=== PATIENT | male | born 1940 | race Caucasian/White ===

== ENCOUNTER 2018-07-25 08:13 | Day surgery (SDC) | payer MEDICARE, SELFPAY ==
[2018-07-25 08:53] VITALS: BMI 23.1
[2018-07-25 09:06] VITALS: BP 127/77; PULSE 61; RESP 16; TEMP 36.2; O2SAT 97
[2018-07-25] MEDS: SODIUM CHLORIDE 0.9% 1,000 ML 84 ML IV (09:08)
--- NOTE | 2018-07-25 10:16 | PM.HP.1 ---
History of Present Illness Date Patient Seen: 07/25/18 Time Patient Seen: 10:16 Chief complaint: [id number] SCREENING COLONOSCOPY Narrative: Very pleasant 77-year-old gentleman here for colonoscopy. 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 His last colonoscopy was in at the end of the year in 2014. He denies any new problems or symptoms related to the function of his GI tract. He reports that he continues to have loose stools but he has only about 1 bowel movement today but notes that is looser than it was before he had surgery. This has not changed since his operation. Patient History Social History household members: spouse Family & Social History Social History: household members spouse Meds Home Medications Medication Instructions Recorded Confirmed Type multivitamin 1 tab PO BID 07/25/18 07/25/18 History Allergies Allergy/AdvReac Type Severity Reaction Status Date / Time No Known Drug Allergies Allergy Verified 07/25/18 08:52 Review of Systems Review of Systems All systems reviewed & are unremarkable except as noted in HPI and below Exam Vital Signs (past 8 hours): - 07/25/18 09:06 Temperature 97.1 F L Pulse Rate 61 Respiratory Rate 16 Blood Pressure 127/77 Pulse Oximetry 97 Oxygen Delivery Method Room Air Narrative Exam Narrative: Very pleasant gentleman who appears younger than his stated age. HEENT: Normocephalic and atraumatic, pupils equal round reactive to light accommodation with anicteric sclera Lungs: Clear bilaterally Heart: Regular rate and rhythm Abdomen: Soft, nontender, active bowel sounds Extremities: Warm well perfused Assessment & Plan Plan: Assessment/Plan Narrative: Pleasant gentleman with a personal history of colon cancer here for a surveillance colonoscopy. We discussed the risks and benefits of the procedure the patient expressed a desire to complete it today.
--- NOTE | 2018-07-25 10:18 | SUR.OPER ---
GLASSES TO PACU WITH PATIENT
[2018-07-25] MEDS: fentaNYL 250 MCG/5 ML INJ IV (10:28)
[2018-07-25] MEDS: MIDAZOLAM 5 MG/5 ML VIAL IV (10:28)
--- NOTE | 2018-07-25 10:37 | PM.OP.1 ---
Operative Date/Time/Diagnoses Date of procedure: 07/25/18 Time of procedure: 10:38 Pre-op diagnosis: Personal history of colon cancer approximately 5 years ago Post-op diagnosis: same Procedure & Clinicians Procedure: Colonoscopy to the anastomosis at the hepatic flexure Same procedure as scheduled: Yes Indications: Last colonoscopy 3 years ago Surgeon: Jessica Mariano Click Yes if Unassisted: Yes Anesthesia Type: Sedation (Versed 2 mg; fentanyl 50 mcg) Operative Notes Findings: 1. Excellent prep 2. Anastomosis identified at the region of the hepatic flexure. It is in good repair and without evidence of neoplasia 3. Very minimal diverticulosis limited the sigmoid region 4. Mildly tortuous colon with some looping at the region of the splenic flexure 5. Grade 1 internal hemorrhoids Closure Type: not applicable Specimen(s): none sent Procedure in detail: After obtaining informed consent, the patient was brought to the GI suite and placed in the left lateral decubitus position on the examination table. After placement of appropriate monitors, the patient was given incremental doses of Versed and Fentanyl until an appropriate level of sedation was achieved. A time out was held per SCOAP protocol. A digital rectal examination was performed and did not reveal any masses or obstructing lesions. The colonoscope was gently passed into the patient's anus and the entire colon navigated to the level of the ileocolic anastomosis with mild difficulty due to looping of the colonoscope in the splenic flexure region. Once we had reached the anastomosis, the scope was withdrawn being sure to go before and beyond all mucosal folds and prominences and get an excellent examination. The findings are noted above. At the level of the rectal vault, the scope was retroflexed and the internal anal canal was examined. The scope was straightened and air aspirated from the colon. The instrument was removed from the patient's body and the procedure was concluded. The patient was allowed to awaken from sedation without difficulty and taken to the post-anesthesia care unit in good condition. Total sedation time was 20 min Total withdrawal time was 7 min 4 sec Complications: none Condition: stable Disposition: PACU Plan for aftercare: 1. Discharge to home 2. Plan for next colonoscopy in 5 years or as clinically indicated
[2018-07-25 10:45] VITALS: BP 114/74; PULSE 72; RESP 12; TEMP 36.2; O2SAT 96
--- NOTE | 2018-07-25 11:05 | SUR.PHASEII ---
Pt arrived from Endo room, fully awake, VS stable.
== END 2018-07-25 10:59 | disposition home or self-care (01) ==
PROVIDERS: Family Provider Internal Medicine; PCP Internal Medicine; Visit Provider Surgery
PROC: 0DJD8ZZ Inspection of Lower Intestinal Tract, Via Natural or Artificial Opening Endoscopic (ICD-10-PCS; CPT 45378; principal; 2018-07-25 09:45)
DX: Z85.038 Personal history of other malignant neoplasm of large intestine (principal); K64.0 First degree hemorrhoids; K57.30 Diverticulosis of large intestine without perforation or abscess without bleeding
CPT/HCPCS: G0105; 99152; J2250; J3010

== ENCOUNTER → 2020-03-26 14:08 | Outpatient (CLI) | payer MEDICARE, SELFPAY ==
--- NOTE | 2020-03-26 | DI.RAD.S_ITS ---
PROCEDURE: XR LUMBAR SPINE 2-3V INDICATIONS: Dorsalgia, unspecified TECHNIQUE: 3 views of the lumbar spine were acquired. COMPARISON: None. FINDINGS: Bones: L1 compression fracture with moderate height loss. Remaining visualized vertebral body heights grossly preserved. Multilevel degenerative endplate sclerosis and spurring. Diffuse facet arthropathy. Slight lateral curvature of the spine. Soft tissues: Scattered vascular calcifications in the aorta. IMPRESSION: L1 compression fracture, which could be acute. Please correlate clinically to point tenderness Dictated by: Kevin Valentine M.D. on 03/26/2020 at 15:47 Approved by: Kevin Valentine M.D. on 03/26/2020 at 15:49
--- NOTE | 2020-03-26 | DI.RAD.S_ITS ---
PROCEDURE: XR THORACIC SPINE 3V INDICATIONS: Dorsalgia, TECHNIQUE: 3 views of the thoracic spine were acquired. COMPARISON: [facility], CT, CHEST/ABD/PEL WITH CONTRAST, 04/26/2016, 9:19. FINDINGS: Bones: L1 compression fracture with moderate anterior height loss. Multilevel degenerative endplate sclerosis and spurring. Diffuse facet arthropathy. Soft tissues: No paravertebral stripe thickening. IMPRESSION: L1 compression fracture with moderate height loss. This is new since 04/26/16 however no more recent comparison studies. Please correlate with point tenderness. Dictated by: Kevin Valentine M.D. on 03/26/2020 at 15:45 Approved by: Kevin Valentine M.D. on 03/26/2020 at 15:47
== END ==
PROVIDERS: Family Provider Internal Medicine; PCP Internal Medicine; Referring Provider Student in an Organized Health Care Education/Training Program; Visit Provider Student in an Organized Health Care Education/Training Program
DX: M54.9 Dorsalgia, unspecified (principal); M48.56XA Collapsed vertebra, not elsewhere classified, lumbar region, initial encounter for fracture; M47.814 Spondylosis without myelopathy or radiculopathy, thoracic region; M47.816 Spondylosis without myelopathy or radiculopathy, lumbar region; I70.0 Atherosclerosis of aorta
CPT/HCPCS: 72072; 72100

== ENCOUNTER 2020-08-27 14:04 | Observation (INO) | payer MEDICARE, SELFPAY ==
[2020-08-27] VITALS (8 sets, daily range): BP systolic 136–152; BP diastolic 72–82; PULSE 60–66; RESP 16–31; TEMP 36.6–36.7; O2SAT 97–100; BMI 23.5
--- NOTE | 2020-08-27 14:15 | DI.CT.S_ITS ---
PROCEDURE: CT HEAD/BRAIN WO CON INDICATIONS: Righ visual vield loss, now resolved. TECHNIQUE: Noncontrast 4.5 mm thick angled axial sections acquired from the foramen magnum to the vertex, with coronal and sagittal reformats. For radiation dose reduction, the following was used: automated exposure control, adjustment of mA and/or kV according to patient size. COMPARISON: None. FINDINGS: Image quality: Excellent. CSF spaces: Basal cisterns are patent. No extra-axial fluid collections. The ventricles are symmetric in size and shape. Brain: No intracranial bleeds or masses. There is cerebral volume loss for age, with resultant ventricular and sulcal prominence. There are periventricular and deep white matter chronic small vessel ischemic changes. There is intracranial internal carotid artery atherosclerosis. Skull and face: Calvarium and visualized facial bones appear intact, without suspicious lesions. Sinuses: Visualized sinuses and mastoids are clear. IMPRESSION: 1. No CT evidence of acute intracranial pathology. 2. age-appropriate atrophy and mild white matter chronic small vessel ischemic changes. Dictated by: Estevan Davis M.D. on 08/27/2020 at 14:35 Approved by: Estevan Davis M.D. on 08/27/2020 at 14:36
--- NOTE | 2020-08-27 14:49 | PC.NURSE ---
5 episodes of right sided vision loss (different lewis of right vision) since 6 am. 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 Dr. Jolly's office said no vision issues/ please do stroke work up with CRP and Sed rate to explore temperal arteritis. This is report from office that sent her
--- NOTE | 2020-08-27 14:53 | ED.GENADULT ---
HPI - General Adult General Chief complaint: Eye Problems Stated complaint: episodes of vision loss since 6am Time Seen by Provider: 08/27/20 14:21 Source: patient and family Mode of arrival: Ambulatory Limitations: no limitations History of Present Illness HPI narrative: Patient is an 79-year-old male who is sent over from the ophthalmology clinic for evaluation of potential stroke. Patient is a very healthy 79-year-old male. He states that he has had 5 distinct episodes today where he has had vision changes in his right eye. He states that these episodes have varied as to how much of the visual field in his right eye is affected. Also varying how long the symptoms have lasted and also what type of symptoms that he is having. He was able to be seen by Ophthalmology today and had a dilated eye exam which the patient stated that he was told was unremarkable. He was sent to the emergency department for evaluation of potential temporal arteritis and also CVA. At the time here in the ER he denies any symptoms. Related Data Home Medications Medication Instructions Recorded Confirmed multivitamin 1 tab PO BID 07/25/18 07/25/18 Allergies Allergy/AdvReac Type Severity Reaction Status Date / Time No Known Drug Allergies Allergy Verified 07/25/18 08:52 Review of Systems Constitutional Constitutional: Denies chills, Denies fever(s), Denies headache(s) and Denies malaise Eyes Eyes: Reports change in vision ENT Ears, Nose, Mouth, and Throat: Denies vertigo, Denies dizziness, Denies headache(s), Denies sinus pain, Denies sinus pressure and Denies sore throat Cardiovascular Cardiovascular: Denies chest pain, Denies rapid heart rate, Denies lightheadedness and Denies dyspnea Respiratory Respiratory: Denies cough and Denies dyspnea Gastrointestinal Gastrointestinal: Denies abdominal pain, Denies nausea and Denies vomiting Genitourinary Genitourinary: Denies dysuria Genitourinary: Denies dysuria Musculoskeletal Musculoskeletal: Denies arthralgias, Denies myalgias, Denies numbness and Denies tingling Integumentary/Breasts Skin/Breast: Denies lesions and Denies rash Neurologic Neurologic: Denies abnormal speech, Denies confusion, Denies vertigo, Denies dizziness, Denies headache(s), Denies numbness and Denies tingling Psychiatric Psychiatric: Denies confusion Hematologic/Lymphatic Hematologic/Lymphatic: Denies easy bleeding and Denies easy bruising On Anticoagulants: No Allergic/Immunologic Allergic/Immunologic: Denies urticaria Patient History Medical History Healthy adult Social History household members: spouse Exam Initial Vital Signs Initial Vital Signs: Vital Signs Temperature 97.9 F 08/27/20 14:16 Pulse Rate 66 08/27/20 14:16 Respiratory Rate 16 08/27/20 14:16 Blood Pressure 152/72 H 08/27/20 14:16 Pulse Oximetry 98 08/27/20 14:16 Const General: cooperative, comfortable, well developed and well groomed Limitations: mental status not altered HENSD Head: normal to inspection, normocephalic and atraumatic Eyes General: appearance normal, both eyes and all related structures Pupils: other (Dilated pupils bilaterally) EOM: EOM intact bilaterally Chest Chest: No crepitus and No tenderness Resp Effort & Inspection: normal respiratory effort Auscultation: clear to auscultation bilaterally Cardio Rate: regular rate Rhythm: regular rhythm GI Inspection: non-distended Palpation: soft, No firm and No tender Skin Lesions: no lesions Rashes: no rashes Neuro General: patient alert, patient awake and patient oriented x3 Cognition: normal cognition Gait: normal gait Motor: muscle tone normal throughout Sensory Exam: no sensory deficits noted Extrem General: normal to inspection and capillary refill normal Psych Appearance: grossly normal and well kempt Scores GCS Karthik coma scale eye opening: Spontaneous Karthik coma scale verbal response: Orientated Karthik coma scale motor response: Obey commands Karthik coma scale total score: 15 NIH Stroke Scale Level of Conciousness: Alert, keenly responsive Ask month/age: Answers both questions correctly. Open/close eyes, close hand: Performs both tasks correctly Best gaze horizontal: Normal Visual lewis: No visual loss Facial palsy: Normal symetrical movement Left arm drift: No drift for full 10 sec Right arm drift: No drift for full 10 sec Left leg drift: No drift for full 5 sec Right leg drift: No drift for full 5 sec Limb ataxia: Absent Sensory on face/arms/legs: Normal, no sensory loss Best language: No aphasia, normal Dysarthria: Normal Extinction or inattention: No abnormality Total NIH Stroke scale score: 0 Course Orders Ordered: ED Orders 08/27/20 14:15 CT head/brain wo con Stat Urinalysis and Microscopic Stat 08/27/20 14:16 Urine Drug Screen, Rapid Stat EKG-12 Lead Stat 08/27/20 14:38 CRP [C-Reactive Protein Quant] Stat Complete Blood Count AUTO DIFF Stat Comprehensive Metabolic Panel Stat Erythrocyte Sedimentation Rate Stat Partial Thromboplastin Time Stat Prothrombin Time INR Stat Troponin & CK Cardiac Panel Stat 08/27/20 14:53 MR stroke Stat 08/27/20 16:47 Trop I [Troponin I] Stat 08/27/20 18:25 COVID19 Stat Discontinued Medications Aspirin (Aspirin 81 Mg Chew Tab) 324 mg PO NOW ONE Stop: 08/27/20 15:49 Last Admin: 08/27/20 16:10 Dose: 324 mg Documented by: XIMENA Vital Signs Vital signs: Vital Signs - 8 hr 08/27/20 14:16 08/27/20 16:08 08/27/20 16:30 Temperature 97.9 F Pulse Rate 66 65 64 Respiratory Rate 16 31 H 18 Blood Pressure 152/72 H 143/77 H 141/81 H Pulse Oximetry 98 98 98 08/27/20 17:00 08/27/20 17:30 08/27/20 18:00 Temperature Pulse Rate 60 62 61 Respiratory Rate 17 17 22 Blood Pressure 136/77 144/75 H Pulse Oximetry 98 99 97 08/27/20 18:19 Temperature Pulse Rate 61 Respiratory Rate 19 Blood Pressure 144/75 H Pulse Oximetry 98 Medical Decision Making Lab Data Lab results reviewed: Yes I reviewed the patient's lab results. Result diagrams: 08/27/20 14:38 08/27/20 14:38 Labs: Lab Results 08/27/20 08/27/20 08/27/20 Range/Units 14:38 14:38 14:38 WBC 4.4 L (4.5-11.0) X10^3/uL RBC 3.53 L (4.5-5.9) X10^6/uL Hgb 11.4 L (13.5-17.5) g/dL Hct 34.1 L (41-53) % MCV 96.7 (80-100) fL MCH 32.3 (26-34) PG MCHC 33.5 (30-36) % RDW 13.8 (11.6-14.8) % Plt Count 225 (150-400) X10^3/uL Neut % (Auto) 52.1 (50-75) % Lymph % (Auto) 26.9 (25-40) % [place] % (Auto) 16.4 H (3-14) % Eos % (Auto) 3.8 (2-4) % Baso % (Auto) 0.8 (0-2) % Neut # (Auto) 2300 (2159-1877) /uL Lymph # (Auto) 1200 (2351-7947) /uL [place] # (Auto) 700 (0-900) /uL Eos # (Auto) 200 (0-450) /uL Baso # (Auto) 0 (0-100) /uL ESR (0-15) MM/HR PT 11.9 (10.1-12.7) SECONDS INR 1.0 (0.9-1.3) APTT 32 (26.4-36.2) SECONDS Sodium 139 (137-145) mmol/L Potassium 4.3 (3.4-5.1) mmol/L Chloride 105 (98-107) mmol/L Carbon Dioxide 27 (22-32) mmol/L BUN 22 H (9-20) mg/dL Creatinine 0.94 (0.66-1.25) mg/dL Estimated GFR > 60.0 (>60) mL/min BUN/Creatinine Ratio 23.4 H (6-22) Glucose 87 (80-110) mg/dL Calcium 9.0 (8.4-10.2) mg/dL Total Bilirubin 0.2 (0.2-1.3) mg/dL AST 37 (17-59) IU/L ALT 18 (<50) IU/L Alkaline Phosphatase 59 (38-126) U/L Total Creatine Kinase 99 (55-170) U/L CK-MB (CK-2) TNP CK-MB (CK-2) Rel Index TNP Troponin I 0.168 H* (0.01-0.034) ng/mL C-Reactive Protein (<1.0) mg/dL Total Protein 7.8 (6.3-8.2) g/dL Albumin 4.4 (3.5-5.0) g/dL Globulin 3.4 (1.7-4.1) g/dL Albumin/Globulin Ratio 1.3 (1.0-2.8) 08/27/20 08/27/20 08/27/20 Range/Units 14:38 14:38 16:47 WBC (4.5-11.0) X10^3/uL RBC (4.5-5.9) X10^6/uL Hgb (13.5-17.5) g/dL Hct (41-53) % MCV (80-100) fL MCH (26-34) PG MCHC (30-36) % RDW (11.6-14.8) % Plt Count (150-400) X10^3/uL Neut % (Auto) (50-75) % Lymph % (Auto) (25-40) % [place] % (Auto) (3-14) % Eos % (Auto) (2-4) % Baso % (Auto) (0-2) % Neut # (Auto) (2953-9225) /uL Lymph # (Auto) (5997-2276) /uL [place] # (Auto) (0-900) /uL Eos # (Auto) (0-450) /uL Baso # (Auto) (0-100) /uL ESR 43 H (0-15) MM/HR PT (10.1-12.7) SECONDS INR (0.9-1.3) APTT (26.4-36.2) SECONDS Sodium (137-145) mmol/L Potassium (3.4-5.1) mmol/L Chloride (98-107) mmol/L Carbon Dioxide (22-32) mmol/L BUN (9-20) mg/dL Creatinine (0.66-1.25) mg/dL Estimated GFR (>60) mL/min BUN/Creatinine Ratio (6-22) Glucose (80-110) mg/dL Calcium (8.4-10.2) mg/dL Total Bilirubin (0.2-1.3) mg/dL AST (17-59) IU/L ALT (<50) IU/L Alkaline Phosphatase (38-126) U/L Total Creatine Kinase (55-170) U/L CK-MB (CK-2) CK-MB (CK-2) Rel Index Troponin I 0.166 H* (0.01-0.034) ng/mL C-Reactive Protein 0.8 (<1.0) mg/dL Total Protein (6.3-8.2) g/dL Albumin (3.5-5.0) g/dL Globulin (1.7-4.1) g/dL Albumin/Globulin Ratio (1.0-2.8) Imaging Data CT scan - head: Radiologist's Impression: [address] [id number] Scan ReportSigned Patient: Jacob Currie CMR#: [id number]: 1940Acct:[id number]/Sex: 79 / MDate of Service: 08/27/20Loc: EDAccession Number: [id number] Procedure: CT head/brain wo con Ordering Provider: Paul Winn D.O. PROCEDURE: CT HEAD/BRAIN WO CON INDICATIONS: Righ visual vield loss, now resolved. TECHNIQUE: Noncontrast 4.5 mm thick angled axial sections acquired from the foramen magnum to the vertex, with coronal and sagittal reformats. For radiation dose reduction, the following was used: automated exposure control, adjustment of mA and/or kV according to patient size. COMPARISON: None. FINDINGS: Image quality: Excellent. CSF spaces: Basal cisterns are patent. No extra-axial fluid collections. The ventricles are symmetric in size and shape. Brain: No intracranial bleeds or masses. There is cerebral volume loss for age, with resultant ventricular and sulcal prominence. There are periventricular and deep white matter chronic small vessel ischemic changes. There is intracranial internal carotid artery atherosclerosis. Skull and face: Calvarium and visualized facial bones appear intact, without suspicious lesions. Sinuses: Visualized sinuses and mastoids are clear. IMPRESSION: 1. No CT evidence of acute intracranial pathology. 2. age-appropriate atrophy and mild white matter chronic small vessel ischemic changes. Dictated by: Estevan Davis M.D. on 08/27/2020 at 14:35 Approved by: Estevan Davis M.D. on 08/27/2020 at 14:36 stroke MRI: Radiologist's Impression: [address] [address]A[place]dt Resonance ReportSigned Patient: Jacob Currie CMR#: [id number]: 1940Acct:[id number]/Sex: 79 / MDate of Service: 08/27/20Loc: EDAccession Number: [id number] Procedure: MR stroke Ordering Provider: Paul Winn D.O. PROCEDURE: MR STROKE Pre- and post-contrast brain MRI, non-contrast brain MR angiogram, pre- and postcontrast neck MR angiogram INDICATIONS: right sided vision loss TECHNIQUE: Brain: Noncontrast axial T1 spin echo, axial T2 fast spin echo, sagittal and axial FLAIR, coronal T2 fast spin echo, axial gradient echo, axial diffusion and ADC through the brain. After the administration of contrast, axial 3D VIBE of the cranial vasculature and brain. Brain MRA: Non-contrast 3-D time of flight MR angiogram, with multiple aptfxyx-rhvhuxdgs-mgxpqyqwze (MIP) reformats performed. Neck MRA: Axial and sagittal TruFISP through the neck. Coronal dynamic MR angiogram during administration of contrast in the arterial and venous phases, with 3-dimenstional hlfobva-ozolgbqoi-ubittzdaik (MIP) reformats constructed from subtraction images. COMPARISON: Merged With [facility], CT, CT HEAD/BRAIN WO CON, 08/27/2020, 14:21. FINDINGS: Image quality: Excellent. BRAIN: CSF spaces: Ventricles are normal in size and shape. Basal cisterns are patent. No extra-axial fluid collections. Brain: No intracranial bleeds or mass effects. Mild cerebral volume loss Eric-white matter interface is normal. Diffusion weighted images show no acute ischemic insults. Brainstem appears normal. Normal intravascular flow voids are present. No abnormal intracranial enhancement. Skull and face: Calvarial marrow signal is normal. Orbits appear normal. Sinuses: Sinuses and mastoids are clear. BRAIN MR ANGIOGRAM: Anterior circulation: Intracranial internal carotid arteries are normal in size and enhancement. The flow within the paired anterior cerebral arteries is normal and symmetric. The flow within the middle cerebral arteries is normal and symmetric. The anterior communicating artery is seen. No stenoses, occlusions, or aneurysms. Posterior circulation: The visualized portions of the vertebral arteries demonstrate normal caliber, and join to form a normal appearing basilar artery. There is origin of the right posterior cerebral artery. The flow within the posterior cerebral arteries is normal and symmetric. No stenoses, occlusions, or aneurysms. NECK MR ANGIOGRAM: Carotids: Great vessels demonstrate a conventional anatomy as they arise from the aortic arch. The origins of the common carotid arteries appear patent. The calibers and courses of both common carotid arteries are normal. The bifurcation regions appear normal bilaterally. The internal carotid arteries demonstrate normal course and caliber. Posterior circulation: The origins of the vertebral arteries appear patent. More superior portions of both vertebral arteries demonstrate normal course and caliber, and join to form a normal appearing basilar artery. Miscellaneous: Subclavian arteries appear patent. Pre-contrast images through the neck show no soft tissue abnormalities. IMPRESSION: BRAIN MRI: 1. No acute intracranial abnormalities. 2. Mild cerebral volume loss. BRAIN MR ANGIOGRAM: 1. No hemodynamic significant stenosis in anterior or posterior circulations. 2. origin of the right posterior cerebral artery (a normal variant). NECK MR ANGIOGRAM: No hemodynamic significant stenosis in cervical carotid arteries or vertebral arteries bilaterally. Dictated by: Tim Jack M.D. on 08/27/2020 at 16:19 Approved by: Tim Jack M.D. on 08/27/2020 at 16:39 ECG Data Attestation: I personally reviewed and interpreted this ECG as follows: Prior ECG tracings: not available for review Interpretation: Sinus rhythm Ventricular rate is 61 Left bundle-branch block MDM Narrative Medical decision making narrative: Other than his dilated eyes which were done at the ophthalmology clinic today patient has a normal exam here in the emergency department. He has no tenderness over his temporal arteries. He is asymptomatic and has no visual changes since arrival here in the ER. His head CT is unremarkable, is stroke MRI is negative. His labs are unremarkable except for an elevated troponin. His renal function is normal. He has a left bundle branch block on his EKG. I have no prior EKGs to compare this to. No prior troponins to compare this to. I did discuss the case with Dr. Cortés who is on-call for cardiology who recommended admission, trending of troponin and an echocardiogram. If his troponin elevated that he needs transferred. If his echocardiogram is abnormal that he would need transferred. Both of these are normal then he would need a stress test. Discussed the case with Dr. Mccabe who is on-call for Internal Medicine who will admit for further evaluation treatment. Patient was given an aspirin but we did not start any heparin. Discussed the admission with the patient his for bedside. They both expressed understanding agreement. Discharge Plan Departure Patient Disposition: Admitted as Observation Clinical Impression: Visual disturbance, Complete left bundle branch block, Elevated troponin Admit Date/Time: 08/27/20 19:12 Admit Provider: John Mccabe
[2020-08-27 14:56] LABS: Add Manual Diff / Slide Review NO; Basophils Absolute Auto 0 /uL (0-100); Basophils Percent Auto 0.8 % (0-2); Eosinophils Absolute Auto 200 /uL (0-450); Eosinophils Percent Auto 3.8 % (2-4); Hematocrit 34.1 % (41-53); Hemoglobin 11.4 g/dL (13.5-17.5); Lymphocytes Absolute Auto 1200 /uL (1100-4500); Lymphocytes Percent Auto 26.9 % (25-40); Mean Corpuscular HGB Conc 33.5 % (30-36); Mean Corpuscular Hemoglobin 32.3 PG (26-34); Mean Corpuscular Volume 96.7 fL (80-100); Monocytes Absolute Auto 700 /uL (0-900); Monocytes Percent Auto 16.4 % (3-14); Neutrophils Absolute Auto 2300 /uL (1500-7000); Neutrophils Percent Auto 52.1 % (50-75); Platelet Count 225 X10^3/uL (150-400); Red Blood Cell Count 3.53 X10^6/uL (4.5-5.9); Red Cell Distribution Width 13.8 % (11.6-14.8); White Blood Cell Count 4.4 X10^3/uL (4.5-11.0)
[2020-08-27 15:03] LABS: Prothrombin Time 11.9 SECONDS (10.1-12.7)
[2020-08-27 15:05] LABS: PTT Partial Thromboplastin Tim 32 SECONDS (26.4-36.2)
[2020-08-27 15:07] LABS: Alanine Aminotransferase 18 IU/L (<50); Albumin 4.4 g/dL (3.5-5.0); Albumin Globulin Ratio 1.3 (1.0-2.8); Alkaline Phosphatase 59 U/L (38-126); Aspartate Aminotransferase 37 IU/L (17-59); BUN Creatinine Ratio 23.4 (6-22); Bilirubin Total 0.2 mg/dL (0.2-1.3); Blood Urea Nitrogen 22 mg/dL (9-20); Carbon Dioxide 27 mmol/L (22-32); Chloride 105 mmol/L (98-107); Creatine Kinase 99 U/L (55-170); Estimated Glomerular Filt Rate > 60.0 mL/min (>60); Globulin 3.4 g/dL (1.7-4.1); Glucose 87 mg/dL (80-110); HEMOLYSIS 45 (0-50); Potassium 4.3 mmol/L (3.4-5.1); Sodium 139 mmol/L (137-145); Total Protein 7.8 g/dL (6.3-8.2)
[2020-08-27 15:14] LABS: C-Reactive Protein Quant 0.8 mg/dL (<1.0)
[2020-08-27 15:40] LABS: Erythrocyte Sedimentation Rate 43 MM/HR (0-15)
[2020-08-27 15:42] LABS: Troponin I 0.168 ng/mL (0.01-0.034)
[2020-08-27] MEDS: ASPIRIN 81 MG CHEW TAB 324 MG PO (16:10)
[2020-08-27 17:21] LABS: Troponin I 0.166 ng/mL (0.01-0.034)
--- NOTE | 2020-08-27 19:17 | DI.ECHO.S_ITS ---
[facility]---------[facility] +---------+ : : [id number] . : : : : [place] : : : : [id number] : : : : Phone: [phone]+ Echocardiogram Report + + :Name: JULIA IYER Study Date: 08/28/2020 Height: 65 in : :[facility] ReadingLocation: Weight: 188 lb : : Gender: Male BSA: 1.9 m2 : :: 1940 Age: 79 yrs BP: 112/62 mmHg: :Ordering Physician: : :REESE MONCADA MACHINE [employer]-BC Performed By: Zulema Bautista : :Referring: REESE MONCADA : + + Interpretation Summary Left ventricular systolic function is normal with an estimated ejection fraction of 55 to 60% with a significant dyssynchronous contraction pattern due to a conduction abnormality. There are no focal wall motion abnormalities. Left ventricular size appears normal with borderline LVH. Chordal systolic anterior motion of the mitral valve apparatus is noted but there is no evidence for any outflow tract obstruction. There is a probable relaxation diastolic abnormality but normal filling pressures. The right ventricle appears normal in size and systolic function. Right ventricular systolic pressure cannot be estimated but CVP is likely around 3 mmHg. There is mild left atrial enlargement. There is significant mitral annular calcification but no significant functional valvular abnormality. There is moderate calcific aortic sclerosis but no significant stenosis. There is mild aortic regurgitation. The ascending aorta is mild??moderately enlarged. Procedure: A two-dimensional transthoracic echocardiogram with color flow and Doppler was performed. The study quality was technically adequate. There is no prior echocardiogram noted for this patient. The heart rate ranged between 64-88 bpm during the study. Left Ventricle: The left ventricle is normal in size. There is borderline concentric left ventricular hypertrophy. There is mild proximal septal thickening noted. Left ventricular systolic function appears normal without focal wall motion abnormalities. The ejection fraction is estimated to be 55- 60%. There is a marked dyssynchronous contraction pattern, consistent with a conduction abnormality. Diastolic parameters suggest a relaxation abnormality of the left ventricle, consistent with probable normal filling pressures. Right Ventricle: The right ventricle is normal in size and function. Atria: The left atrium is mildly dilated. Right atrial size is normal. There is no Doppler evidence for an interatrial shunt. Mitral Valve: There is moderate to severe mitral annular calcification. The mitral valve leaflets are mildly calcified. There is systolic anterior motion of the chordal apparatus. The mitral valve mean gradient is 3.5 mmHg. No significant mitral valve stenosis. There is trace mitral regurgitation. Aortic Valve: There is moderate aortic valve sclerosis. The aortic valve is moderately calcified. There is reduced mobility of the right coronary cusp. There is no hemodynamically significant valvular aortic stenosis. There is mild aortic regurgitation. Tricuspid Valve: The tricuspid valve is normal in structure and function. There is trace tricuspid regurgitation. Pulmonary artery pressures cannot be estimated because of the lack of a measurable TR jet velocity but the IVC suggests a CVP of around 3 mmHg. Pulmonic Valve: The pulmonic valve is not well visualized. There is no pulmonic valvular regurgitation. Great Vessels: The aortic root is normal size. The ascending aorta is mild- moderately enlarged. The IVC is of normal diameter and collapses greater than 50% with a sniff. This suggests a low right atrial pressure of 3 mm Hg. Pericardium/ Pleura There is no pericardial effusion. There is no pleural effusion. MMode/2D Measurements & Calculations LVIDd: 4.9 cm LVOT diam: 2.4 cm LVIDs: 3.6 cm Ao root diam: 3.8 cm FS: 26.3 % asc Aorta Diam: 4.1 cm EPSS: 0.87 cm Ao Arch Diam (Prox Trans): 2.5 cm IVSd: 1.1 cm LVPWd: 1.1 cm LV perdomo. diameter/BSA (cm/m^2): 2.5 LV sys. diameter/BSA (cm/m^2): 1.9 LA A2 area: 24.9 cm2 RA long axis: 5.6 cm LA A4 area: 18.8 cm2 RA area: 19.0 cm2 LA length (vol): 5.6 cm RA vol: 55.1 ml LA vol: 70.8 ml RA : 28.6 ml/m2 LA vol index: 36.7 ml/m2 IVC diam: 1.5 cm RVD1 (basal): 3.0 cm TAPSE: 2.5 cm Doppler Measurements & Calculations Ao V2 max: 175.5 cm/sec MV E max darin: 77.6 cm/sec Ao V2 mean: 121.0 cm/sec MV A max darin: 156.9 cm/sec Ao max P.3 mmHg MV E/A: 0.49 Ao mean P.7 mmHg Med Peak E' Darin: 5.7 cm/sec Ao V2 VTI: 36.3 cm E/E' med: 13.6 Lat Peak E' Darin: 7.8 cm/sec E/E' lat: 9.9 E/e' average: 11.8 MV dec time: 0.20 sec PA V2 max: 73.9 cm/sec MV V2 mean: 85.4 cm/sec PA V2 mean: 49.1 cm/sec MV mean P.5 mmHg PA mean P.1 mmHg MV V2 VTI: 27.6 cm PA pr(Accel): 34.5 mmHg Reading Physician:02:06 PM
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
[2020-08-27 19:20] LABS: COVID19 -Nasal RAPID Negative (Negative)
[2020-08-27] MEDS: LACTATED RINGERS 1,000 ML 60 ML IV (21:15)
[2020-08-27] MEDS: predniSONE 20 MG TABLET 60 MG PO (21:26)
[2020-08-27 21:38] LABS: C-Reactive Protein Quant 0.8 mg/dL (<1.0)
[2020-08-27 21:48] LABS: Erythrocyte Sedimentation Rate 43 MM/HR (0-15)
--- NOTE | 2020-08-27 22:15 | PC.NURSE ---
Addendum entered by Keshia Coombs R.N. 08/27/20 23:27: Pt provided with teaching materials as requested by JAROCHO Bird on Giant Cell Temporal Arteritis and prednisone. Pt reports injury to left fourth finger from gardening tool. JAROCHO Bird has pt remove bandaid and requests this editorial writer steristrip this wound. Pt has adherent gauze in place to finger. Removed gently after soaking with normal saline. Wound edges are well approximated with macerated skin to finger pad. Finger was dried with gauze after flushing with normal saline and thin steristrips applied. Left open to air. Pt quietly reading in bed. Instructed to request assistance when needing/desiring out of bed. Verbalizes understanding and agreement. Original Note: 1930 Pt to room 205 from [facility] awake, alert, appropriately conversant. Pt's spouse accompanies pt to room and is involved and participatory in pt's care. JAROCHO Bird in room nearly immediately to assess and examine. Performs NIH and pt scores zero. This editorial writer performed bedside swallow eval which pt passed without difficulty. Was provided with diet. BL calf scd's placed with rationale for use. JAROCHO Bird in to discuss with pt rationale for prednisone and pt agrees to take. Pt denies any visual disturbances or other neurological deficits. Denies pain. Educated on plan of care for the evening.
[2020-08-28] VITALS (9 sets, daily range): BP systolic 112–160; BP diastolic 62–85; PULSE 64–76; RESP 16; TEMP 35.9–36.3; O2SAT 96–98
[2020-08-28 00:11] LABS: UR Morphine/Opiate cutoff 300 Negative (Negative); Ur Creatinine Normal (Normal); Ur Specific Gravity Normal (Normal); Urine Amphetamines Negative (Negative); Urine Barbiturates Negative (Negative); Urine Benzodiazepines Negative (Negative); Urine Cocaine Negative (Negative); Urine MDMA Negative (Negative); Urine Methadone Negative (Negative); Urine Methamphetamines Negative (Negative); Urine Oxycodone Negative (Negative); Urine Phencyclidine Negative (Negative); Urine Tetrahydrocannabinol Negative (Negative); Urine Tricyclic Antidepressant Negative (Negative); Urine pH Normal (Normal)
[2020-08-28 00:24] LABS: RBC Urine None Seen (0-5/HPF)
[2020-08-28 00:31] LABS: Appearance Urine UA CLEAR; Bilirubin Urine UA NEGATIVE (NEGATIVE); Color Urine UA YELLOW; Glucose Urine UA NEGATIVE (Negative); Ketones Urine UA NEGATIVE (NEGATIVE); Leukocyte Esterase Urine UA TRACE (NEGATIVE); Nitrite Urine UA NEGATIVE (Negative); Occult Blood Urine UA NEGATIVE (Negative); Protein Urine UA NEGATIVE (Negative); Specific Gravity Urine UA 1.025 (1.000-1.035); Urobilinogen Urine UA 0.2 E.U./dL (0.2)
[2020-08-28 00:34] LABS: Bacteria Urine Few (2-10); Squamous Epithelial Cell Urine 0-1 /HPF (0-5/HPF); WBC Urine 5-10/HPF (0-5/HPF)
[2020-08-28 00:35] LABS: Culture Indicated Urine Specimen Cultured
[2020-08-28 06:36] LABS: Add Manual Diff / Slide Review NO; Basophils Absolute Auto 0 /uL (0-100); Basophils Percent Auto 0.2 % (0-2); Eosinophils Absolute Auto 0 /uL (0-450); Eosinophils Percent Auto 0.2 % (2-4); Hematocrit 33.2 % (41-53); Hemoglobin 11.2 g/dL (13.5-17.5); Lymphocytes Absolute Auto 500 /uL (1100-4500); Lymphocytes Percent Auto 13.6 % (25-40); Mean Corpuscular HGB Conc 33.8 % (30-36); Mean Corpuscular Hemoglobin 32.6 PG (26-34); Mean Corpuscular Volume 96.7 fL (80-100); Monocytes Absolute Auto 100 /uL (0-900); Monocytes Percent Auto 1.7 % (3-14); Neutrophils Absolute Auto 2900 /uL (1500-7000); Neutrophils Percent Auto 84.3 % (50-75); Platelet Count 217 X10^3/uL (150-400); Red Blood Cell Count 3.43 X10^6/uL (4.5-5.9); Red Cell Distribution Width 13.8 % (11.6-14.8); White Blood Cell Count 3.4 X10^3/uL (4.5-11.0)
[2020-08-28 06:46] LABS: BUN Creatinine Ratio 22.7 (6-22); Blood Urea Nitrogen 20 mg/dL (9-20); Calcium 9.3 mg/dL (8.4-10.2); Carbon Dioxide 27 mmol/L (22-32); Chloride 104 mmol/L (98-107); Cholesterol 206 mg/dL (140-199); Estimated Glomerular Filt Rate > 60.0 mL/min (>60); Glucose 167 mg/dL (80-110); HDL Cholesterol 51 mg/dL (40-60); HEMOLYSIS < 15 (0-50); LDL Cholesterol Calculated 144 mg/dL (<100); Potassium 4.4 mmol/L (3.4-5.1); Sodium 139 mmol/L (137-145); Triglycerides 55 mg/dL (35-150)
[2020-08-28 06:56] LABS: NT-proBNP (BNP-Adult 18+) 244 pg/mL (<450); Troponin I 0.096 ng/mL (0.01-0.034)
--- NOTE | 2020-08-28 07:38 | PC.NURSE ---
nurse called lab to report that UA has order to be cultured if indicated, lab has orders and will follow up. communication orders passed on at shift report.
[2020-08-28] MEDS: ENOXAPARIN 40 MG/0.4 ML SYRINGE SUBCUT (08:49)
[2020-08-28] MEDS: predniSONE 20 MG TABLET 60 MG PO (08:50)
[2020-08-28] MEDS: ASPIRIN EC 81 MG TABLET PO (08:50)
--- NOTE | 2020-08-28 10:23 | PM.CN ---
History of Present Illness Consult details Date Patient Seen: 08/28/20 Time Patient Seen: 10:28 Chief complaint: episodes of vision loss since 6am Reason for consult: change in vision Requesting provider: Kuldip Jose Narrative: two episodes of acute changes in vision yesterday. right eye only, no pain, no trauma, no prior episodes. first episode was global blurring that resolved. Second episode was left 1/2 of his right eye blurry. current vision is normal. Meds Home Medications and Allergies Home Medications Medication Instructions Recorded Confirmed Type multivitamin 1 tab PO BID 07/25/18 07/25/18 History Allergies Allergy/AdvReac Type Severity Reaction Status Date / Time No Known Drug Allergies Allergy Verified 07/25/18 08:52 Review of Systems Review of Systems ROS: Yes All systems reviewed with the patient and are negative except as otherwise documented Eyes Comments: transient blurring of the right eye only. Gastrointestinal Gastrointestinal: Reports change in bowel habits and Reports loose stools Musculoskeletal Comments: back stiffness Exam Vital Signs (past 8 hours): - 08/28/20 04:44 08/28/20 05:58 08/28/20 07:28 Temperature 97.3 F L 96.9 F L Pulse Rate 67 73 Respiratory Rate 16 16 Blood Pressure 112/62 160/85 H Pulse Oximetry 96 96 98 Oxygen Delivery Method Room Air Oxygen Flow Rate 0 Const General: cooperative and comfortable Nutritional Appearance: average body habitus and well nourished Orientation: alert and oriented x3 HENMT Head: normocephalic and atraumatic Nose: external nose normal Mouth: oral mucosae normal Eyes Conjunctivae: conjunctivae normal Neck Neck: normal visual inspection and trachea midline Chest Chest: normal inspection of the chest Resp Effort & Inspection: normal respiratory effort and able to speak in complete sentences GI Inspection: normal to inspection Skin General: turgor normal Lesions: no lesions Neuro General: patient alert, patient oriented x3 and no focal motor deficits Psych Appearance: well kempt Judgment: judgment good Objective Labs Result Diagrams: 08/28/20 06:17 08/28/20 06:17 Labs: Laboratory Results - last 24 hr 08/27/20 08/27/20 08/27/20 14:38 14:38 14:38 WBC 4.4 L RBC 3.53 L Hgb 11.4 L Hct 34.1 L MCV 96.7 MCH 32.3 MCHC 33.5 RDW 13.8 Plt Count 225 Neut % (Auto) 52.1 Lymph % (Auto) 26.9 [place] % (Auto) 16.4 H Eos % (Auto) 3.8 Baso % (Auto) 0.8 Neut # (Auto) 2300 Lymph # (Auto) 1200 [place] # (Auto) 700 Eos # (Auto) 200 Baso # (Auto) 0 ESR PT 11.9 INR 1.0 APTT 32 Sodium 139 Potassium 4.3 Chloride 105 Carbon Dioxide 27 BUN 22 H Creatinine 0.94 Estimated GFR > 60.0 BUN/Creatinine Ratio 23.4 H Glucose 87 Calcium 9.0 Magnesium Total Bilirubin 0.2 AST 37 ALT 18 Alkaline Phosphatase 59 Total Creatine Kinase 99 CK-MB (CK-2) TNP CK-MB (CK-2) Rel Index TNP Troponin I 0.168 H* C-Reactive Protein NT-Pro-B Natriuret Pep Total Protein 7.8 Albumin 4.4 Globulin 3.4 Albumin/Globulin Ratio 1.3 Triglycerides Cholesterol LDL Cholesterol, Calc HDL Cholesterol TSH Urine Color Urine Appearance Urine pH Ur Specific [place] Urine Protein Urine Glucose (UA) Urine Ketones Urine Occult Blood Urine Nitrate Urine Bilirubin Urine Urobilinogen Ur Leukocyte Esterase Urine RBC Urine WBC Ur Squamous Epith Cells Urine Bacteria Ur Culture Indicated? U Opiates 300ng/mL cut Ur Oxycodone Screen Urine Methadone Screen Ur Barbiturates Screen U Tricyclic Antidepress Ur Phencyclidine Scrn Ur Amphetamines Screen U Methamphetamines Scrn Ur MDMA Scrn (Ecstasy) U Benzodiazepines Scrn Urine Cocaine Screen U Marijuana (THC) Screen SARS-CoV-2 (PCR) 08/27/20 08/27/20 08/27/20 14:38 14:38 16:47 WBC RBC Hgb Hct MCV MCH MCHC RDW Plt Count Neut % (Auto) Lymph % (Auto) [place] % (Auto) Eos % (Auto) Baso % (Auto) Neut # (Auto) Lymph # (Auto) [place] # (Auto) Eos # (Auto) Baso # (Auto) ESR 43 H PT INR APTT Sodium Potassium Chloride Carbon Dioxide BUN Creatinine Estimated GFR BUN/Creatinine Ratio Glucose Calcium Magnesium Total Bilirubin AST ALT Alkaline Phosphatase Total Creatine Kinase CK-MB (CK-2) CK-MB (CK-2) Rel Index Troponin I 0.166 H* C-Reactive Protein 0.8 NT-Pro-B Natriuret Pep Total Protein Albumin Globulin Albumin/Globulin Ratio Triglycerides Cholesterol LDL Cholesterol, Calc HDL Cholesterol TSH Urine Color Urine Appearance Urine pH Ur Specific [place] Urine Protein Urine Glucose (UA) Urine Ketones Urine Occult Blood Urine Nitrate Urine Bilirubin Urine Urobilinogen Ur Leukocyte Esterase Urine RBC Urine WBC Ur Squamous Epith Cells Urine Bacteria Ur Culture Indicated? U Opiates 300ng/mL cut Ur Oxycodone Screen Urine Methadone Screen Ur Barbiturates Screen U Tricyclic Antidepress Ur Phencyclidine Scrn Ur Amphetamines Screen U Methamphetamines Scrn Ur MDMA Scrn (Ecstasy) U Benzodiazepines Scrn Urine Cocaine Screen U Marijuana (THC) Screen SARS-CoV-2 (PCR) 08/27/20 08/27/20 08/27/20 18:25 21:01 21:01 WBC RBC Hgb Hct MCV MCH MCHC RDW Plt Count Neut % (Auto) Lymph % (Auto) [place] % (Auto) Eos % (Auto) Baso % (Auto) Neut # (Auto) Lymph # (Auto) [place] # (Auto) Eos # (Auto) Baso # (Auto) ESR 43 H PT INR APTT Sodium Potassium Chloride Carbon Dioxide BUN Creatinine Estimated GFR BUN/Creatinine Ratio Glucose Calcium Magnesium Total Bilirubin AST ALT Alkaline Phosphatase Total Creatine Kinase CK-MB (CK-2) CK-MB (CK-2) Rel Index Troponin I C-Reactive Protein 0.8 NT-Pro-B Natriuret Pep Total Protein Albumin Globulin Albumin/Globulin Ratio Triglycerides Cholesterol LDL Cholesterol, Calc HDL Cholesterol TSH Urine Color Urine Appearance Urine pH Ur Specific [place] Urine Protein Urine Glucose (UA) Urine Ketones Urine Occult Blood Urine Nitrate Urine Bilirubin Urine Urobilinogen Ur Leukocyte Esterase Urine RBC Urine WBC Ur Squamous Epith Cells Urine Bacteria Ur Culture Indicated? U Opiates 300ng/mL cut Ur Oxycodone Screen Urine Methadone Screen Ur Barbiturates Screen U Tricyclic Antidepress Ur Phencyclidine Scrn Ur Amphetamines Screen U Methamphetamines Scrn Ur MDMA Scrn (Ecstasy) U Benzodiazepines Scrn Urine Cocaine Screen U Marijuana (THC) Screen SARS-CoV-2 (PCR) Negative 08/27/20 08/28/20 08/28/20 23:58 00:22 06:17 WBC 3.4 L RBC 3.43 L Hgb 11.2 L Hct 33.2 L MCV 96.7 MCH 32.6 MCHC 33.8 RDW 13.8 Plt Count 217 Neut % (Auto) 84.3 H D Lymph % (Auto) 13.6 L [place] % (Auto) 1.7 L Eos % (Auto) 0.2 L Baso % (Auto) 0.2 Neut # (Auto) 2900 Lymph # (Auto) 500 L [place] # (Auto) 100 Eos # (Auto) 0 Baso # (Auto) 0 ESR PT INR APTT Sodium Potassium Chloride Carbon Dioxide BUN Creatinine Estimated GFR BUN/Creatinine Ratio Glucose Calcium Magnesium Total Bilirubin AST ALT Alkaline Phosphatase Total Creatine Kinase CK-MB (CK-2) CK-MB (CK-2) Rel Index Troponin I C-Reactive Protein NT-Pro-B Natriuret Pep Total Protein Albumin Globulin Albumin/Globulin Ratio Triglycerides Cholesterol LDL Cholesterol, Calc HDL Cholesterol TSH Urine Color Yellow Urine Appearance Clear Urine pH 5.0 Ur Specific [place] 1.025 Urine Protein Negative Urine Glucose (UA) Negative Urine Ketones Negative Urine Occult Blood Negative Urine Nitrate Negative Urine Bilirubin Negative Urine Urobilinogen 0.2 Ur Leukocyte Esterase Trace H Urine RBC None seen Urine WBC 5-10/hpf H Ur Squamous Epith Cells 0-1 /hpf Urine Bacteria Few (2-10) H Ur Culture Indicated? Specimen cultured U Opiates 300ng/mL cut Negative Ur Oxycodone Screen Negative Urine Methadone Screen Negative Ur Barbiturates Screen Negative U Tricyclic Antidepress Negative Ur Phencyclidine Scrn Negative Ur Amphetamines Screen Negative U Methamphetamines Scrn Negative Ur MDMA Scrn (Ecstasy) Negative U Benzodiazepines Scrn Negative Urine Cocaine Screen Negative U Marijuana (THC) Screen Negative SARS-CoV-2 (PCR) 08/28/20 08/28/20 06:17 06:17 WBC RBC Hgb Hct MCV MCH MCHC RDW Plt Count Neut % (Auto) Lymph % (Auto) [place] % (Auto) Eos % (Auto) Baso % (Auto) Neut # (Auto) Lymph # (Auto) [place] # (Auto) Eos # (Auto) Baso # (Auto) ESR PT INR APTT Sodium 139 Potassium 4.4 Chloride 104 Carbon Dioxide 27 BUN 20 Creatinine 0.88 Estimated GFR > 60.0 BUN/Creatinine Ratio 22.7 H Glucose 167 H Calcium 9.3 Magnesium 2.0 Total Bilirubin AST ALT Alkaline Phosphatase Total Creatine Kinase CK-MB (CK-2) CK-MB (CK-2) Rel Index Troponin I 0.096 H C-Reactive Protein NT-Pro-B Natriuret Pep 244 Total Protein Albumin Globulin Albumin/Globulin Ratio Triglycerides 55 Cholesterol 206 H LDL Cholesterol, Calc 144 H HDL Cholesterol 51 TSH 1.20 Urine Color Urine Appearance Urine pH Ur Specific [place] Urine Protein Urine Glucose (UA) Urine Ketones Urine Occult Blood Urine Nitrate Urine Bilirubin Urine Urobilinogen Ur Leukocyte Esterase Urine RBC Urine WBC Ur Squamous Epith Cells Urine Bacteria Ur Culture Indicated? U Opiates 300ng/mL cut Ur Oxycodone Screen Urine Methadone Screen Ur Barbiturates Screen U Tricyclic Antidepress Ur Phencyclidine Scrn Ur Amphetamines Screen U Methamphetamines Scrn Ur MDMA Scrn (Ecstasy) U Benzodiazepines Scrn Urine Cocaine Screen U Marijuana (THC) Screen SARS-CoV-2 (PCR) Assessment & Plan Assessment and plan (1) Transient monocular blindness: Problem details: work up negative for stroke. can not rule out TIA (characteristic of vision change is inconsistent). Giant Cell Arteritis is possible, however his Sed rate is in the 40's and has been for 3 years. discussed the risk and benefits of bilateral temporal artery biopsy. spoke in depth on treatment of arteritis and the low yield of confirmatory biopsy. He prefers to forgo biopsy. We discussed a 5 day window in which he has to change his mind. currently being treated with steroids, symptoms have resolved. Status: Acute (2) Visual disturbance: Problem details: Treated with steroids Status: Acute (3) Complete left bundle branch block: Problem details: Cardiology consult in progress Status: Acute (4) Elevated troponin: Problem details: Cardiology consult in progress Status: Acute
--- NOTE | 2020-08-28 11:04 | CM.DANOTE ---
Addendum entered by Ary Mckeon LPN 08/28/20 11:38: Met with pt and his Tawanna, introduced self and role. Pt states that at this time his vision is back to normal. He explains that he is already undergoing workup with several specialists for ongoing symtoms that may have a related diagnosis. He expects to continue followup in the outpt setting. Dr. Jose then arrived to go over results of ECHO and Dr. Barrett's recommendations. Anticipate d/c today. Will follow prn. Original Note: Discharge Planning/Care Management DCP: assessment: case received, EMR reviewed. Discussed in Team Rounds. Pt is an 79 year old male who admitted last evening to care of hospitalist team. PCP: Dr. Waylon Gee Payer: Medicare Consulting: Dr. Barrett/[facility] Dr. Jose is seeing pt today. He reports pt with ? of temportal arteritis and with ? of need for biopsy. He stated POC would be dependent on the surgical consultation results. Dr. Barrett did see pt this morning and at this time it sounds like the biopsy is deferred for now (after decision made in discussion between pt and Dr. Barrett. Will plan to check in with pt and follow prn. Advanced directive, confirm from FAMILY Start: 08/27/20 20:32 Freq: Q24H Status: Active Protocol: Document 08/28/20 10:27 KAB (Rec: 08/28/20 10:27 KAB [id number]) Advance Directive, confirm on record Time 10:27 Person contacted & pt Copy received Yes Advanced directive available on record Yes CM Discharge Assessment Start: 08/28/20 11:03 Freq: Status: Active Protocol: Document 08/28/20 11:04 ITV (Rec: 08/28/20 11:04 ITV [id number]) Discharge Planning Assessment Advance Directives? Yes History Provided By Medical Record Has Patient been admitted in last 30 No days? Prior Living Arrangements House Household Members spouse Comment Tawanna Bethea Is patient alert and oriented? Yes
--- NOTE | 2020-08-28 11:33 | P.DS_ITS ---
History of Present Illness History of Present Illness Date Patient Seen: 08/28/20 Time Patient Seen: 11:34 Chief complaint: episodes of vision loss since 6am Narrative: Anibal is an 79-year-old male Jacob Currie who developed episodes of vision loss since 6am day of admission which was 08/27/2020. He presented to ED from the ophthalmology clinic for evaluation of potential stroke. Patient is a very healthy 79-year-old male. He states that he has had 5 distinct episodes today where he has had vision changes in his right eye. He states that these episodes varied in the involvement of the visual field, the duration of the visual does disturbance. He was evaluated by Ophthalmology on day of admission. He had a dilated eye exam which was unremarkable. He was sent to the emergency department for evaluation of potential temporal arteritis and also CVA. Significant laboratory studies on admission were troponin 1st. 0.166, troponin 2nd. 0.168, ESR 43, CRP 0.8. His NIH score: 0, GCS: 15 Heart Score: [address]:No CT evidence of acute intracranial pathology, age-appropriate atrophy and mild white matter chronic small vessel ischemic changes. Brain MRI:No acute intracranial abnormalities, Mild cerebral volume loss. BRAIN MR ANGIOGRAM: No hemodynamic significant stenosis in anterior or posterior circulations. origin of the right posterior cerebral artery (a normal variant). NECK MR ANGIOGRAM: No hemodynamic significant stenosis in cervical carotid arteries or vertebral arteries bilaterally. EKG:Sinus rhythm Ventricular rate is 61 Left bundle-branch block. Discharge Providers Provider Date of admission: 08/27/20 19:12 Discharge Date: 08/28/20 Primary care physician: Waylon Gee MD Consults: 08/27/20 22:04 Consult to General Surgery Routine Comment: Consulted Dr. Barrett at 2200 08/27/20 Consulting Provider: [facility] Reason for consultation: Temporal artery biopsy rule out GCA Has provider been notified: Yes Discharge provider: John Mccabe MD Summary Hospital Course Discharge Diagnosis: Visual disturbance questionable etiology questionable temporal arteritis Elevated troponin Glucose intolerance secondary to steroids Hyperlipidemia Hospital Course: Visual disturbance questionable temporal arteritis Because of the concern for temporal arteritis he was started on prednisone 60 mg p.o. daily. Surgery was consulted regarding temporal artery biopsy. Dr. andria Barrett of general surgery saw the patient after going over the procedure as well as the low yield of confirmatory biopsy the patient ultimately decided to forego the biopsy she told him that there was a 5 day window in which it would be reasonable to pursue a biopsy after which she would be extremely unlikely to be beneficial. The patient understood this. Also in reviewing the patient's ESR results it was noted that he had an ESR 09/14/2017 which was 47. He also had an ESR done for size 17/20 18 of 42. His ESR on admission 08/27 was 43. I would suspect that over a 2 year period that his ESR would have increased significantly more and therefore was seen less likely that his elevated ESR is resolved of temporal arteritis. Again he has no tenderness no nodular component to this right temporal area. Therefore he will not be treated for temporal arteritis with prednisone. This could always be reconsidered. Elevated troponin The patient had an elevated troponin on admission. It was 0.166 and a follow-up 2 hours later had decreased to 0.096. EKG was remarkable for a left bundle- branch block. He underwent an echocardiogram which revealed normal ejection fraction of 55-60%. There were no wall motion abnormalities. It did show mitral sclerosis and aortic sclerosis but no significant stenosis. Without evidence of significant wall motion abnormality the concern for underlying coronary artery disease is less. But he would be best served to have an outpatient nuclear medicine stress test and this can be arranged by his primary care physician. Again, he is asymptomatic without chest pain, palpitation, shortness of breath. He does have hyperlipidemia and he will be placed on a niacin plus aspirin for risk modification. Significant side effects of statins such as drug-induced myositis, transaminitis. Although these are less common with this information he decided to forego statins for now and to use niacin Glucose intolerance secondary to steroids Patient's glucose on admission was eighty-seven. He had received 60 mg of prednisone yesterday evening. This morning his glucose was 167. His glucose intolerance is most likely secondary to steroids. His hemoglobin A1c was 5.4. As stated his elevated glucose is most likely related to the prednisone that he received prior evening. He was advised of his morning elevated glucose. He was told that it is most likely related to his steroids and that by discontinuing steroids that should resolve. His primary care physician can follow up on his glycemic state Hyperlipidemia His cholesterol was 206 and his LDL was 144 He will be advised on low-cholesterol diet. He will be started on Lipitor 20 mg p.o. daily. Regarding his decision to forego statins see elevated troponins above. Status at Discharge Cognitive/behavioral status at discharge: oriented and at baseline, oriented Functional status at discharge: independent ambulation Overall status at discharge: patient is back to baseline Time Spent with Patient Time spent: Greater than 30 minutes Exam Vital Signs (past 8 hours): - 08/28/20 04:44 08/28/20 05:58 08/28/20 07:28 Temperature 97.3 F L 96.9 F L Pulse Rate 67 73 Respiratory Rate 16 16 Blood Pressure 112/62 160/85 H Pulse Oximetry 96 96 98 08/28/20 08:15 08/28/20 09:00 Temperature Pulse Rate Respiratory Rate Blood Pressure 137/84 Pulse Oximetry 98 Oxygen Delivery Method Room Air Oxygen Flow Rate 0 Narrative Exam Narrative: General: Patient is a well-developed. NAD HEENT: Normocephalic, atraumatic, extraocular muscles intact, oral pharynx is clear and mucous membranes are moist. Patient negative for temporal tenderness inflammation or erythema. Neck is supple and symmetric, trachea is midline, no adenopathy, no thyroid enlargement, nontender, no masses palpated. Negative for JVD Chest: Normal AP diameter and contour Lungs: Auscultation of all lung lewis are clear without adventitious sounds, wheezes, rhonchi, or rales. Cardio: S1 & S2 with regular rate and rhythm without murmur, rubs, or gallops, no carotid bruit, no cardiac pulsations present. Abdomen: Soft nontender, negative for organomegaly, or masses. Bowel sounds are present in all 4 quadrants without guarding or rebound Musculoskeletal: FROM. Muscle strength and tone are equal within normal limits, no cyanosis, clubbing or edema present. Skin: Warm dry and intact without rashes, ulcerations or petechiae. Neuro: Alert and orientated x3, strength is +5/5 in all extremities, sensation to touch intact, no gross deficits noted of cranial nerves. Psych: Patient has a well-kept appearance, appropriate affect. Objective Labs Result Diagrams: 08/28/20 06:17 08/28/20 06:17 Labs: Laboratory Results - last 24 hr 08/27/20 08/27/20 08/27/20 14:38 14:38 14:38 WBC 4.4 L RBC 3.53 L Hgb 11.4 L Hct 34.1 L MCV 96.7 MCH 32.3 MCHC 33.5 RDW 13.8 Plt Count 225 Neut % (Auto) 52.1 Lymph % (Auto) 26.9 Burnett % (Auto) 16.4 H Eos % (Auto) 3.8 Baso % (Auto) 0.8 Neut # (Auto) 2300 Lymph # (Auto) 1200 Burnett # (Auto) 700 Eos # (Auto) 200 Baso # (Auto) 0 ESR PT 11.9 INR 1.0 APTT 32 Sodium 139 Potassium 4.3 Chloride 105 Carbon Dioxide 27 BUN 22 H Creatinine 0.94 Estimated GFR > 60.0 BUN/Creatinine Ratio 23.4 H Glucose 87 Calcium 9.0 Magnesium Total Bilirubin 0.2 AST 37 ALT 18 Alkaline Phosphatase 59 Total Creatine Kinase 99 CK-MB (CK-2) TNP CK-MB (CK-2) Rel Index TNP Troponin I 0.168 H* C-Reactive Protein NT-Pro-B Natriuret Pep Total Protein 7.8 Albumin 4.4 Globulin 3.4 Albumin/Globulin Ratio 1.3 Triglycerides Cholesterol LDL Cholesterol, Calc HDL Cholesterol TSH Urine Color Urine Appearance Urine pH Ur Specific [place] Urine Protein Urine Glucose (UA) Urine Ketones Urine Occult Blood Urine Nitrate Urine Bilirubin Urine Urobilinogen Ur Leukocyte Esterase Urine RBC Urine WBC Ur Squamous Epith Cells Urine Bacteria Ur Culture Indicated? U Opiates 300ng/mL cut Ur Oxycodone Screen Urine Methadone Screen Ur Barbiturates Screen U Tricyclic Antidepress Ur Phencyclidine Scrn Ur Amphetamines Screen U Methamphetamines Scrn Ur MDMA Scrn (Ecstasy) U Benzodiazepines Scrn Urine Cocaine Screen U Marijuana (THC) Screen SARS-CoV-2 (PCR) 08/27/20 08/27/20 08/27/20 14:38 14:38 16:47 WBC RBC Hgb Hct MCV MCH MCHC RDW Plt Count Neut % (Auto) Lymph % (Auto) Burnett % (Auto) Eos % (Auto) Baso % (Auto) Neut # (Auto) Lymph # (Auto) Burnett # (Auto) Eos # (Auto) Baso # (Auto) ESR 43 H PT INR APTT Sodium Potassium Chloride Carbon Dioxide BUN Creatinine Estimated GFR BUN/Creatinine Ratio Glucose Calcium Magnesium Total Bilirubin AST ALT Alkaline Phosphatase Total Creatine Kinase CK-MB (CK-2) CK-MB (CK-2) Rel Index Troponin I 0.166 H* C-Reactive Protein 0.8 NT-Pro-B Natriuret Pep Total Protein Albumin Globulin Albumin/Globulin Ratio Triglycerides Cholesterol LDL Cholesterol, Calc HDL Cholesterol TSH Urine Color Urine Appearance Urine pH Ur Specific [place] Urine Protein Urine Glucose (UA) Urine Ketones Urine Occult Blood Urine Nitrate Urine Bilirubin Urine Urobilinogen Ur Leukocyte Esterase Urine RBC Urine WBC Ur Squamous Epith Cells Urine Bacteria Ur Culture Indicated? U Opiates 300ng/mL cut Ur Oxycodone Screen Urine Methadone Screen Ur Barbiturates Screen U Tricyclic Antidepress Ur Phencyclidine Scrn Ur Amphetamines Screen U Methamphetamines Scrn Ur MDMA Scrn (Ecstasy) U Benzodiazepines Scrn Urine Cocaine Screen U Marijuana (THC) Screen SARS-CoV-2 (PCR) 08/27/20 08/27/20 08/27/20 18:25 21:01 21:01 WBC RBC Hgb Hct MCV MCH MCHC RDW Plt Count Neut % (Auto) Lymph % (Auto) Burnett % (Auto) Eos % (Auto) Baso % (Auto) Neut # (Auto) Lymph # (Auto) Burnett # (Auto) Eos # (Auto) Baso # (Auto) ESR 43 H PT INR APTT Sodium Potassium Chloride Carbon Dioxide BUN Creatinine Estimated GFR BUN/Creatinine Ratio Glucose Calcium Magnesium Total Bilirubin AST ALT Alkaline Phosphatase Total Creatine Kinase CK-MB (CK-2) CK-MB (CK-2) Rel Index Troponin I C-Reactive Protein 0.8 NT-Pro-B Natriuret Pep Total Protein Albumin Globulin Albumin/Globulin Ratio Triglycerides Cholesterol LDL Cholesterol, Calc HDL Cholesterol TSH Urine Color Urine Appearance Urine pH Ur Specific [place] Urine Protein Urine Glucose (UA) Urine Ketones Urine Occult Blood Urine Nitrate Urine Bilirubin Urine Urobilinogen Ur Leukocyte Esterase Urine RBC Urine WBC Ur Squamous Epith Cells Urine Bacteria Ur Culture Indicated? U Opiates 300ng/mL cut Ur Oxycodone Screen Urine Methadone Screen Ur Barbiturates Screen U Tricyclic Antidepress Ur Phencyclidine Scrn Ur Amphetamines Screen U Methamphetamines Scrn Ur MDMA Scrn (Ecstasy) U Benzodiazepines Scrn Urine Cocaine Screen U Marijuana (THC) Screen SARS-CoV-2 (PCR) Negative 08/27/20 08/28/20 08/28/20 23:58 00:22 06:17 WBC 3.4 L RBC 3.43 L Hgb 11.2 L Hct 33.2 L MCV 96.7 MCH 32.6 MCHC 33.8 RDW 13.8 Plt Count 217 Neut % (Auto) 84.3 H D Lymph % (Auto) 13.6 L Burnett % (Auto) 1.7 L Eos % (Auto) 0.2 L Baso % (Auto) 0.2 Neut # (Auto) 2900 Lymph # (Auto) 500 L Burnett # (Auto) 100 Eos # (Auto) 0 Baso # (Auto) 0 ESR PT INR APTT Sodium Potassium Chloride Carbon Dioxide BUN Creatinine Estimated GFR BUN/Creatinine Ratio Glucose Calcium Magnesium Total Bilirubin AST ALT Alkaline Phosphatase Total Creatine Kinase CK-MB (CK-2) CK-MB (CK-2) Rel Index Troponin I C-Reactive Protein NT-Pro-B Natriuret Pep Total Protein Albumin Globulin Albumin/Globulin Ratio Triglycerides Cholesterol LDL Cholesterol, Calc HDL Cholesterol TSH Urine Color Yellow Urine Appearance Clear Urine pH 5.0 Ur Specific [place] 1.025 Urine Protein Negative Urine Glucose (UA) Negative Urine Ketones Negative Urine Occult Blood Negative Urine Nitrate Negative Urine Bilirubin Negative Urine Urobilinogen 0.2 Ur Leukocyte Esterase Trace H Urine RBC None seen Urine WBC 5-10/hpf H Ur Squamous Epith Cells 0-1 /hpf Urine Bacteria Few (2-10) H Ur Culture Indicated? Specimen cultured U Opiates 300ng/mL cut Negative Ur Oxycodone Screen Negative Urine Methadone Screen Negative Ur Barbiturates Screen Negative U Tricyclic Antidepress Negative Ur Phencyclidine Scrn Negative Ur Amphetamines Screen Negative U Methamphetamines Scrn Negative Ur MDMA Scrn (Ecstasy) Negative U Benzodiazepines Scrn Negative Urine Cocaine Screen Negative U Marijuana (THC) Screen Negative SARS-CoV-2 (PCR) 08/28/20 08/28/20 06:17 06:17 WBC RBC Hgb Hct MCV MCH MCHC RDW Plt Count Neut % (Auto) Lymph % (Auto) Burnett % (Auto) Eos % (Auto) Baso % (Auto) Neut # (Auto) Lymph # (Auto) Burnett # (Auto) Eos # (Auto) Baso # (Auto) ESR PT INR APTT Sodium 139 Potassium 4.4 Chloride 104 Carbon Dioxide 27 BUN 20 Creatinine 0.88 Estimated GFR > 60.0 BUN/Creatinine Ratio 22.7 H Glucose 167 H Calcium 9.3 Magnesium 2.0 Total Bilirubin AST ALT Alkaline Phosphatase Total Creatine Kinase CK-MB (CK-2) CK-MB (CK-2) Rel Index Troponin I 0.096 H C-Reactive Protein NT-Pro-B Natriuret Pep 244 Total Protein Albumin Globulin Albumin/Globulin Ratio Triglycerides 55 Cholesterol 206 H LDL Cholesterol, Calc 144 H HDL Cholesterol 51 TSH 1.20 Urine Color Urine Appearance Urine pH Ur Specific [place] Urine Protein Urine Glucose (UA) Urine Ketones Urine Occult Blood Urine Nitrate Urine Bilirubin Urine Urobilinogen Ur Leukocyte Esterase Urine RBC Urine WBC Ur Squamous Epith Cells Urine Bacteria Ur Culture Indicated? U Opiates 300ng/mL cut Ur Oxycodone Screen Urine Methadone Screen Ur Barbiturates Screen U Tricyclic Antidepress Ur Phencyclidine Scrn Ur Amphetamines Screen U Methamphetamines Scrn Ur MDMA Scrn (Ecstasy) U Benzodiazepines Scrn Urine Cocaine Screen U Marijuana (THC) Screen SARS-CoV-2 (PCR) [facility] Medical History Colon cancer Healthy adult Surgical History History of cataract surgery Previous back surgery Family History Mother Diabetes mellitus Father Diabetes mellitus Stroke Sister GCA (giant cell arteritis) Social History household members: spouse Smoking Status: Former smoker alcohol intake: current Discharge Plan Discharge Plan Patient Disposition: Home Provider Discharge Comment: Follow-up with the PCP next week Discharge orders & Medications Prescriptions: New aspirin 81 mg Tablet,Delayed Release (Dr/Ec) 81 mg PO DAILY Qty: 30 RF: 0 niacin [Niaspan Extended-Release] 500 mg tablet extended release 24 hr 500 mg PO BEDTIME Qty: 180 RF: 0 Continued ascorbic acid (vitamin C) 1,000 mg Tablet 500 mg PO BID RF: 0 vitamin B complex [B Complex-Vitamin B12] Tablet 1 tab PO BID RF: 0 multivitamin with minerals Tablet 1 tab PO BID RF: 0 Multi-Vitamin HP/Minerals Capsule 1 cap PO BID RF: 0 Vitamin D3 100 mcg (4,000 unit) Capsule 100 mcg PO BID RF: 0 digestive enzymes Capsule 1 cap PO BID RF: 0 vitamin B complex Tablet 1 tab PO BID RF: 0 multivitamin with minerals [Hair,Skin and Nails] Tablet 1 tab PO BID RF: 0 Prostate Therapy Capsule 1 cap PO BID RF: 0 Curcumin 95 % Powder 1 ea MISCELLANEOUS BID RF: 0 acetylcysteine (bulk) Powder 1 ea MISCELLANEOUS BID RF: 0 Advanced Probiotic (6 strains) 142 mg (10 billion cell) Capsule 1 cap PO BID RF: 0 Follow up/Referrals: Waylon Gee MD [Primary Care Provider] - Diet/Activity/Treatments Diet: Low-cholesterol Skin/Wound/Dressing Care Report to your healthcare provider any signs of infection, such as:: chills, fever Discharge Data Primary Care Provider: Waylon Gee Attending Provider: John Mccabe VTE Deep Vein Thrombosis/Pulmonary Embolism Present on Admission: No
[2020-08-28 12:17] LABS: Hemoglobin A1C% w Est Avg Glu 5.4 % (4.0-6.0)
--- NOTE | 2020-08-28 15:39 | PC.NURSE ---
Pt orders sfor D/C Tele removed. HL discontinued intact. RX & instructions given w/apparent understanding
--- NOTE | 2020-09-01 17:09 | PC.NURSE ---
Late Entry; LR infusion initiated 08/27 at 21:15, stopped prior to discharge 13:30
== END 2020-08-28 15:50 | disposition home or self-care (01) ==
LOC: ED 18:34 → AC 19:13
PROVIDERS: Nurse Practitioner Family; Admitting Provider Internal Medicine; Emergency Provider Emergency Medicine; Family Provider Internal Medicine; PCP Internal Medicine; Referring Provider Emergency Medicine; Visit Provider Internal Medicine
DX: H53.121 Transient visual loss, right eye (principal); R77.8 Other specified abnormalities of plasma proteins; I44.7 Left bundle-branch block, unspecified; R73.09 Other abnormal glucose; E78.5 Hyperlipidemia, unspecified; Z20.822 Contact with and (suspected) exposure to COVID-19
CPT/HCPCS: 36415; 70450; 70548; 70553; 80048; 80053; 80061; 80305; 81001; 82550; 83036; 83735; 83880; 84443; 84484; 85025; 85610; 85651; 85730; 86140; 87086; 87635; 93005; 93306; 96360; 96361; 96372; 99284; C9803; G0378; A9579; J1650

== ENCOUNTER → 2020-09-13 12:48 | Outpatient (CLI) | payer MEDICARE, SELFPAY ==
[2020-08-27 20:23] VITALS: BMI 23.5
--- NOTE | 2020-10-13 08:29 | PM.CARDMON.1 ---
Janitorial Account Manager Report Referral & Results Date Patient Seen: 09/13/20 Requesting provider: Waylon Gee Indication: TIA Duration of monitoring (days): 14 Diary information: There are no patient events to review Data: Minimum heart rate identified was 40 beats per minute at 00:12 on 09/22/2020 Maximum sinus heart rate was 127 beats per minute at 08:09 on 09/14/2020 Maximum overall heart rate was 182 beats per minute at 11:40 on 09/26/2020 during a 19 beat run of nonsustained monomorphic ventricular tachycardia Less than 1% of identified beats were ventricular or supraventricular ectopic in origin, which would classify them as rare. There were 6 runs of ventricular tachycardia the fastest and the longest run being the 19 beat run referenced above. 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 Also very rare very brief runs of SVT/atrial tachycardia These results have been communicated to ordering provider immediately upon receipt of final report.
== END ==
PROVIDERS: Family Provider Internal Medicine; PCP Internal Medicine; Referring Provider Internal Medicine; Visit Provider Internal Medicine
DX: I48.91 Unspecified atrial fibrillation (principal); G45.9 Transient cerebral ischemic attack, unspecified
CPT/HCPCS: 93246; 93248

== ENCOUNTER → 2020-09-20 10:08 | Outpatient (CLI) | payer MEDICARE, SELFPAY ==
[2020-08-27 20:23] VITALS: BMI 23.5
[2020-09-20 11:31] LABS: COVID19 -Nasal RAPID Negative (Negative)
== END ==
PROVIDERS: Family Provider Internal Medicine; PCP Internal Medicine; Visit Provider Physician Assistant
DX: Z20.822 Contact with and (suspected) exposure to COVID-19 (principal)
CPT/HCPCS: 87635; C9803

== ENCOUNTER 2020-09-22 07:31 | Day surgery (SDC) | payer MEDICARE, SELFPAY ==
[2020-08-27 20:23] VITALS: BMI 23.5
[2020-09-22] VITALS (7 sets, daily range): BP systolic 116–145; BP diastolic 62–73; PULSE 53–67; RESP 12–16; TEMP 36.2–36.4; O2SAT 98–99; BMI 22.5
--- NOTE | 2020-09-22 | PATH_ITS ---
[facility] Accession Number: [id number] . 01 Material submitted: . PART A: small bowel - SMALL BOWEL BIOPSY PART B: colon - RANDOM COLON BIOPSIES DIARRHEA . 01 Clinical history: . EGD/COLONOSCOPY W/POSS BX . 02 Diagnosis: A. Small Bowel, Biopsy: Duodenal mucosa with no diagnostic abnormality. Negative for active inflammation, features of sprue, dysplasia, or malignancy. . B. Random Colon, Biopsies: Lymphocytic colitis. MRV 09/27/2020 1520 Local . 02 Electronically signed: . Kalyan Hernandez MD, PhD, Pathologist NPI- [id number] . 01 Gross description: . Part A: SMALL BOWEL BIOPSY: Received in formalin are 3 fragment(s) of farrell, soft tissue measuring 0.1 x 0.1 x 0.1 cm to 0.3 x 0.2 x 0.2 cm submitted entirely in 1 cassette(s) Part B: RANDOM COLON BIOPSIES DIARRHEA: Received in formalin are multiple fragment(s) of farrell, soft tissue measuring 0.1 x 0.1 x 0.1 cm to 0.3 x 0.2 x 0.2 cm submitted entirely in 1 cassette(s) /PATTIE 09/23/2020 2310 Local . 02 Microscopic: . B. A trichrome stain is highlights an unremarkable subepithelial collagen membrane without evidence of irregular thickening. A control stain shows appropriate reactivity. . 02 Pathologist provided ICD-10: R19.7, K52.89 . 02 CPT . 817043, 605387 [facility]formed at: [facility] [address] [place] [address] [address], [place], [place] [id number] MD Alexandre Montanez MD Phone: [phone] Performed at: [facility] [address] [place] [id number] MD Eliza Rausch MD Phone: [phone]
[2020-09-22] MEDS: SODIUM CHLORIDE 0.9% 1,000 ML 100 ML IV (08:11)
--- NOTE | 2020-09-22 08:15 | PM.HP.1 ---
History of Present Illness History of Present Illness Date Patient Seen: 09/22/20 Chief complaint: EGD/COLONOSCOPY W/POSS BX Narrative: Diarrhea, history of colon cancer status post right hemicolectomy, and antibody positive for celiac. Patient History Medical History Colon cancer Healthy adult Surgical History History of cataract surgery Previous back surgery Family & Social History Family History Mother Diabetes mellitus Father Diabetes mellitus Stroke Sister GCA (giant cell arteritis) Social History: household members spouse Tobacco & Substance use: Tobacco type cigarettes Smoking Status Former smoker alcohol intake current alcohol intake frequency 0-2 drinks per day Substance Use Type does not use Meds Home Medications and Allergies Home Medications Medication Instructions Recorded Confirmed Type Advanced Probiotic (6 strains) 1 cap PO BID 08/28/20 09/22/20 History Curcumin 1 ea MISCELLANEOUS BID 08/28/20 09/22/20 History Multi-Vitamin HP/Minerals 1 cap PO BID 08/28/20 09/22/20 History Prostate Therapy 1 cap PO BID 08/28/20 09/22/20 History Vitamin D3 100 mcg PO BID 08/28/20 09/22/20 History acetylcysteine (bulk) 1 ea MISCELLANEOUS BID 08/28/20 09/22/20 History ascorbic acid (vitamin C) 500 mg PO BID 08/28/20 09/22/20 History aspirin 81 mg PO DAILY #30 tab 08/28/20 09/22/20 Rx digestive enzymes 1 cap PO BID 08/28/20 09/22/20 History multivitamin with minerals 1 tab PO BID 08/28/20 09/22/20 History multivitamin with minerals 1 tab PO BID 08/28/20 09/22/20 History [Hair,Skin and Nails] niacin [Niaspan Extended-Release] 500 mg PO BEDTIME #180 tab 08/28/20 09/22/20 Rx vitamin B complex 1 tab PO BID 08/28/20 09/22/20 History vitamin B complex [B 1 tab PO BID 08/28/20 09/22/20 History Complex-Vitamin B12] Allergies Allergy/AdvReac Type Severity Reaction Status Date / Time No Known Drug Allergies Allergy Verified 09/22/20 07:40 Exam Vital Signs (past 8 hours): - 09/22/20 08:01 Temperature 97.4 F L Pulse Rate 59 L Respiratory Rate 12 Blood Pressure 137/66 Pulse Oximetry 99 Oxygen Delivery Method Room Air Narrative Exam Narrative: Oropharynx free of lesions Chest clear to auscultation percussion Cardiac exam reveals no S3 or murmur Assessment & Plan Assessment & Plan narrative: 1. History of colon cancer status post right hemicolectomy and need for follow-up colonoscopy. 2. Diarrhea with positive celiac antibody testing. Need for small-bowel biopsies. Also need for random colon biopsies. Risks benefits alternatives been explained
--- NOTE | 2020-09-22 08:17 | PM.OP.ENDO ---
Operative Date/Time/Diagnoses Date of procedure: 09/22/20 Pre-op diagnosis: See indication and findings Procedure & Clinicians Study performed: EGD and colonoscopy Same procedure as scheduled: Yes Indications: Diarrhea with antibody positive for celiac need for small-bowel biopsies. History of colon cancer and history of diarrhea need for surveillance colonoscopy and random colon biopsies. Last colonoscopy June 2018 Procedure Notes Procedure in detail: After informed consent was obtained the patient was placed in left lateral decubitus position. Video upper scope placed into the oropharynx with the patient's help swelled into the esophagus. The esophagus stomach and duodenum were carefully examined. On withdrawal retroflexed view the GE junction was performed. The scope was removed. The patient tolerated procedure well. At this point the patient was turned and the colonoscope substituted. This was introduced into the rectum and slowly advanced to the cecum. Preparation was good. On slow withdrawal mucosa was carefully examined. The scope was removed. The patient tolerated procedure well. Blood loss none Complications none Sedation Total sedation time 30 minutes Versed 3 mg fentanyl 100 micro g IV titration Findings EGD 1. Normal esophagus other than a wide open Schatzki's ring 2. Normal stomach proximally and distally 3. Normal duodenal bulb and sweep biopsies taken to rule out celiac Colonoscopy 1. Tortuous colon with occasional diverticula 2. Normal ileocolonic anastomosis 3. Normal colonic mucosa. Random biopsies taken to rule out microscopic colitis 4. No evidence of recurrent cancer or colon polyps. Patient will follow up with Dr. Ragland for further workup of diarrhea when pathology returns. If meantime he should try Imodium OTC 1 p.o. q.day to b.i.d. to help control diarrhea.
[2020-09-22] MEDS: fentaNYL 250 MCG/5 ML INJ IV (08:41)
[2020-09-22] MEDS: MIDAZOLAM 5 MG/5 ML VIAL IV (08:52)
== END 2020-09-22 10:26 | disposition home or self-care (01) ==
PROVIDERS: Family Provider Internal Medicine; PCP Internal Medicine; Referring Provider Internal Medicine; Visit Provider Internal Medicine Gastroenterology
PROC: 0DJ08ZZ Inspection of Upper Intestinal Tract, Via Natural or Artificial Opening Endoscopic (ICD-10-PCS; CPT 43235; principal; 2020-09-22 08:30)
PROC: 0DJD8ZZ Inspection of Lower Intestinal Tract, Via Natural or Artificial Opening Endoscopic (ICD-10-PCS; CPT 45378; 2020-09-22 08:30)
DX: K52.89 Other specified noninfective gastroenteritis and colitis (principal); Z85.038 Personal history of other malignant neoplasm of large intestine; Z90.49 Acquired absence of other specified parts of digestive tract; K22.2 Esophageal obstruction; K57.30 Diverticulosis of large intestine without perforation or abscess without bleeding
CPT/HCPCS: 45380; 43239; J2250; J3010

== ENCOUNTER → 2022-09-06 08:46 | Outpatient (CLI) | payer MEDICARE, SELFPAY ==
[2022-03-20 10:17] VITALS: BMI 23.5
[2022-09-06 09:59] LABS: Influenza A - CEPHEID Flu A NEGATIVE (NEGATIVE); Influenza B - CEPHEID Flu B NEGATIVE (NEGATIVE); Respiratory Syncytial Virus Negative (Negative)
[2022-09-06 10:01] LABS: COVID-19 CEPHEID 4-PLEX PCR POSITIVE (Negative)
== END ==
PROVIDERS: Family Provider Internal Medicine; PCP Internal Medicine; Visit Provider Family Medicine
DX: R09.81 Nasal congestion (principal); R05.1 Acute cough
CPT/HCPCS: 0241U

== ENCOUNTER → 2023-02-13 16:29 | Outpatient (CLI) | payer MEDICARE, SELFPAY ==
[2022-03-20 10:17] VITALS: BMI 23.5
--- NOTE | 2023-02-13 16:31 | DI.RAD.S_ITS ---
PROCEDURE: XR ACUTE ABDOMEN SERIES INDICATIONS: vomiting TECHNIQUE: One view chest and two views of the abdomen were acquired. COMPARISON: CT, CHEST/ABD/PEL WITH CONTRAST, 04/26/2016, 9:19. FINDINGS: Surgical changes and devices: None. Chest: Lungs are clear. Heart size is normal. No pleural effusions. No pneumoperitoneum. Abdomen: Nonspecific bowel gas pattern. There are a few short non differential air height fluid levels seen within the mid abdomen likely involving small bowel loops. Paucity of gas seen throughout the remainder of the small bowel. Mild amount of gas and stool visualized within the colon. No pneumatosis or bowel wall thickening. No pneumoperitoneum. Bones: No suspicious bony lesions. IMPRESSION: Nonspecific bowel gas pattern. If patient's symptoms persist, recommend repeat imaging or CT. Dictated by: Octavio Briones [facility] Interpreted: Estevan Davis MD on 02/13/2023 at 20:15 Approved by: Estevan Davis M.D. on 02/14/2023 at 12:06
[2023-02-13 18:06] LABS: Add Manual Diff / Slide Review NO; Basophils Absolute Auto 0 /uL (0-100); Basophils Percent Auto 0.6 % (0-2); Eosinophils Absolute Auto 100 /uL (0-450); Eosinophils Percent Auto 2.7 % (2-4); Hematocrit 33.5 % (41-53); Hemoglobin 11.4 g/dL (13.5-17.5); Lymphocytes Absolute Auto 1000 /uL (1100-4500); Lymphocytes Percent Auto 21.6 % (25-40); Mean Corpuscular Hemoglobin 31.6 PG (26-34); Mean Corpuscular Volume 92.9 fL (80-100); Monocytes Absolute Auto 700 /uL (0-900); Monocytes Percent Auto 16.2 % (3-14); Neutrophils Absolute Auto 2700 /uL (1500-7000); Neutrophils Percent Auto 58.9 % (50-75); Platelet Count 248 X10^3/uL (150-400); Red Blood Cell Count 3.61 X10^6/uL (4.5-5.9); Red Cell Distribution Width 14.1 % (11.6-14.8); White Blood Cell Count 4.6 X10^3/uL (4.5-11.0)
[2023-02-13 18:28] LABS: Alanine Aminotransferase 24 IU/L (<50); Albumin 4.1 g/dL (3.5-5.0); Albumin Globulin Ratio 1.2 (1.0-2.8); Alkaline Phosphatase 54 U/L (38-126); Amylase 60 U/L (30-110); Aspartate Aminotransferase 31 IU/L (17-59); BUN Creatinine Ratio 16.8 (6-22); Bilirubin Total 0.2 mg/dL (0.2-1.3); Blood Urea Nitrogen 16 mg/dL (9-20); C-Reactive Protein Quant 0.8 mg/dL (<1.0); Calcium 8.4 mg/dL (8.4-10.2); Carbon Dioxide 26 mmol/L (22-32); Chloride 105 mmol/L (98-107); Estimated Glomerular Filt Rate > 60 mL/min (>60); Globulin 3.3 g/dL (1.7-4.1); Glucose 88 mg/dL (80-110); HEMOLYSIS < 15 (0-50); Lipase 48 U/L (23-300); Potassium 3.4 mmol/L (3.4-5.1); Sodium 139 mmol/L (137-145); Total Protein 7.4 g/dL (6.3-8.2)
[2023-02-13 18:52] LABS: Carcinoembryonic Antigen 0.8 ng/mL (0.1-3.0); TSH w/ Reflex to FT4 2.06 uIU/mL (0.47-4.68)
[2023-02-13 18:57] LABS: Erythrocyte Sedimentation Rate 40 MM/HR (0-15)
== END ==
PROVIDERS: Family Provider Internal Medicine; PCP Internal Medicine; Referring Provider Internal Medicine; Visit Provider Internal Medicine
DX: R11.0 Nausea (principal); Z85.038 Personal history of other malignant neoplasm of large intestine; R63.4 Abnormal weight loss; R11.10 Vomiting, unspecified; K52.832 Lymphocytic colitis; R53.83 Other fatigue
CPT/HCPCS: 36415; 74022; 80053; 82150; 82378; 83690; 84443; 85025; 85651; 86140

== ENCOUNTER → 2023-02-16 09:17 | Outpatient (CLI) | payer MEDICARE, SELFPAY ==
[2022-03-20 10:17] VITALS: BMI 23.5
--- NOTE | 2023-02-16 09:18 | DI.CT.S_ITS ---
PROCEDURE: CT ABDOMEN PELVIS W CON INDICATIONS: Weight loss/colon cancer TECHNIQUE: After the administration of oral and intravenous contrast, axial sections were acquired from the lung bases to the pubic symphysis. Coronal and sagittal reformats were performed. For radiation dose reduction, the following was used: automated exposure control, adjustment of mA and/or kV according to patient size. COMPARISON:[facility], CT, CHEST/ABD/PEL WITH CONTRAST, 04/26/2016, 9:19. FINDINGS: Image quality: Excellent. Lung bases: Unremarkable. Heart: At least moderate atherosclerotic coronary artery calcifications. Normal heart size. ABDOMEN: Liver: Unchanged. Cysts. No solid masses. Gallbladder: Unremarkable. Biliary ducts: Unremarkable. Pancreas: Unremarkable. Spleen: Unremarkable. Adrenal Glands: Unremarkable. Kidneys and Ureters: Unremarkable. Stomach and Bowel: Remote right hemicolectomy. No small or large bowel dilatation or wall thickening. Peritoneum: No abnormal intraperitoneal fluid. No free air. Ventral Wall: No hernia. Abdominal Nodes: No retroperitoneal or mesenteric adenopathy by size criteria. Vessels: Aorta and inferior vena cava are normal in size. PELVIS: Pelvic Organs: Prostatomegaly. Bladder: Unremarkable. Pelvic Nodes: No enlarged lymph nodes. Miscellaneous: No inguinal hernias are seen. Bones: Severe L1 compression, likely chronic no lytic or blastic bony lesions identified. IMPRESSION: 1. No acute abdominal process. 2. Remote partial colectomy. 3. No evidence of metastatic disease. 4. Prostatomegaly. Dictated by: Doug Silverio M.D. on 02/16/2023 at 14:26 Approved by: Doug Silverio M.D. on 02/16/2023 at 14:31
== END ==
PROVIDERS: Family Provider Internal Medicine; PCP Internal Medicine; Referring Provider Internal Medicine; Visit Provider Internal Medicine
DX: K52.832 Lymphocytic colitis (principal); N40.0 Benign prostatic hyperplasia without lower urinary tract symptoms; R11.0 Nausea; R11.10 Vomiting, unspecified; R63.4 Abnormal weight loss; I25.10 Atherosclerotic heart disease of native coronary artery without angina pectoris; Z85.038 Personal history of other malignant neoplasm of large intestine; Z90.49 Acquired absence of other specified parts of digestive tract
CPT/HCPCS: 74177; Q9967